=== PATIENT | male | born 1995 | race Caucasian/White ===

== ENCOUNTER 2019-03-28 12:29 | Emergency (ER) | payer SELFPAY ==
[~2019-03-28] VITALS: Ht 180.3 cm; Wt 95.3 kg
[~2019-03-28 12:29] MED LIST: FAMO40PD4 PO; METO-460 PO; OMEP40EC24 PO; ONDA-25 PO; PANT40EC PO
[2019-03-28 12:36] VITALS: BP 127/64
--- NOTE | 2019-03-28 12:39 | NUR ---
PT AMBULATED TO ER BED 02
--- NOTE | 2019-03-28 12:44 | NUR ---
PATIENT PRESENTS TO ED WITH ABDOMINAL PAIN, N/V X3 DAYS. PATIENT STATES PAIN OF 7/10 AT THIS TIME; VSS; PATIENT POSITIONED FOR COMFORT; HOB ELEVATED; BEDRAILS UP X2; BED DOWN. ER MD MADE AWARE OF PT STATUS.
[2019-03-28] MEDS ORDERED: MORPHINE SULFATE 4 MG/ML SYR IVP ONE (13:15)
[2019-03-28] MEDS ORDERED: ONDANSETRON 4 MG/2 ML VIAL IVP ONE (13:15)
[2019-03-28] MEDS ORDERED: NACL 0.9% 1,000 ML IV ONE (13:15)
--- NOTE | 2019-03-28 13:15 | NUR ---
Patient being evaluated by DR. WARNER at bedside.
--- NOTE | 2019-03-28 13:30 | NUR ---
IV INSERTED TO LEFT FOREARM, 22GA, PAIN MEDICATION GIVEN AND NS BOLUS STARTED, PATIENT TOLERATED WELL ON ALL THE PROCEDURES, WILL CONTINUE TO MONITOR.
[2019-03-28 13:35] LABS: BASOPHILS % (AUTO) 0.7 % (0.0-2.0); EOSINOPHILS # (AUTO) 0.1 K/uL (0-0.4); EOSINOPHILS % (AUTO) 1.2 % (0.0-4.0); HEMATOCRIT 44.1 % (36-52); HEMOGLOBIN 14.9 g/dL (12.0-18.0); LYMPHOCYTES # (AUTO) 2.1 K/uL (2.0-11.5); LYMPHOCYTES % (AUTO) 32.3 % (20.5-51.1); MEAN CORPUSCULAR HEMOGLOBIN 28 pg (27-31); MEAN CORPUSCULAR HGB CONC 34 g/dL (33-37); MEAN CORPUSCULAR VOLUME 82.9 fL (80-94); MONOCYTES # (AUTO) 0.6 K/uL (0.8-1.0); NEUTROPHILS # (AUTO) 3.7 K/uL (1.8-7.7); NEUTROPHILS % (AUTO) 56.8 % (42.2-75.2); PLATELET COUNT (AUTO) 308 K/uL (140-450); RED BLOOD CELL COUNT(AUTO) 5.32 MIL/uL (4.20-6.10); RED CELL DISTRIBUTION WIDTH 13.9 % (11.6-13.7); WHITE BLOOD COUNT (AUTO) 6.5 K/uL (4.8-10.8)
--- NOTE | 2019-03-28 13:40 | NUR ---
NOT ABLE TO GIVE URINE SAMPLE AT THIS TIME, DR. WARNER MADE AWARE.
[2019-03-28 13:53] LABS: ALBUMIN 3.8 g/dL (3.4-5.0); ANION GAP 11.5 (8-16); CARBON DIOXIDE 29.1 mmol/L (21-32); CREATININE 0.9 mg/dL (0.7-1.3); POTASSIUM 4.6 mmol/L (3.5-5.1); TOTAL BILIRUBIN 0.6 mg/dL (0.0-1.0)
--- NOTE | 2019-03-28 14:28 | NUR ---
IV BOLUS COMPLETED, PATIENT STATED FEELING BETTER, PAIN LEVEL REDUCED TO 4/10 AT THIS TIME. STILL NOT ABLE TO GIVE URINE, DR. WARNER MADE AWARE.
[2019-03-28 14:45] VITALS: BP 127/64
--- NOTE | 2019-03-28 14:45 | NUR ---
Patient discharged BY DR. WARNER, Written and verbal after care instructions given and explained. Rx of ZOFRAN given. Patient educated on indication of medication including possible reaction and side effects.All questions addressed prior to discharge. IV REMOVED, ID band removed. Patient advised to follow up with PMD.
== END 2019-03-28 14:45 | disposition home or self-care (01) ==
LOC: MED 12:29
DX: A08.4 Viral intestinal infection, unspecified (principal); K21.9 Gastro-esophageal reflux disease without esophagitis; G40.909 Epilepsy, unspecified, not intractable, without status epilepticus; Z90.49 Acquired absence of other specified parts of digestive tract; Z79.899 Other long term (current) drug therapy
CPT/HCPCS: 36415; 80053; 82150; 83690; 85025; 96361; 96374; 96375; 99283; J2270; J2405; J7030